=== PATIENT | female | born 1980 | race Caucasian/White ===

== ENCOUNTER 2022-02-01 16:49 | Emergency (ER) | payer BC ==
[~2022-02-01] VITALS: Ht 167.6 cm; Wt 94.6 kg
[2022-02-01] MEDS ORDERED: sonata (17:45)
[2022-02-01] MEDS ORDERED: ZOLOFT100 MG PO (17:45)
[2022-02-01] MEDS ORDERED: DOXYCYCLINE HY100 MG PO (17:45)
[2022-02-01] MEDS ORDERED: SERTRALINE HCL100 MG PO (17:45)
[2022-02-01] MEDS ORDERED: NORETHINDRONE0.35 MG (17:45)
[2022-02-01] MEDS ORDERED: WELLBUTRIN SR100 MG PO (17:45)
[2022-02-01] MEDS ORDERED: BACTRIM DS TAB1 EACH PO (18:39)
== END 2022-02-01 18:47 | disposition home or self-care (01) ==
LOC: FSED 16:55
DX: R00.2 Palpitations (principal); N39.0 Urinary tract infection, site not specified; E03.9 Hypothyroidism, unspecified; F41.9 Anxiety disorder, unspecified; N80.9 Endometriosis, unspecified
CPT/HCPCS: 71045; 80053; 82553; 84484; 85025; 85379; 93005; 99284